=== PATIENT | female | born 1935 | race Caucasian/White ===

== ENCOUNTER 2017-07-08 11:13 | Emergency (ER) | payer MEDICARE ==
[~2017-07-08] VITALS: Ht 160 cm; Wt 66.0 kg
[~2017-07-08 11:13] MED LIST: ASPIRIN LOW81 M1 PO; B/P PILL; BAYER LOW81 MG PO; CARAFATE1 GM PO; CIPROFLOXACN500 MG PO; LIPITOR10 MG PO; LISINOPRIL5 MG PO; MULTIVITAMIN OR; NORVASC5 MG PO; OMEPRAZOLE20 MG PO; PLAVIX75 MG PO; PRILOSEC40 MG PO; RANITIDINE150 MG OR; SMZ-TMP DS1 TAB PO; TENORMIN25 M1 PO; TRAMADOL HYDROC50 MG PO; VITAMIN D2000 UNI2; ZANTAC150 M1 PO; [UNRECOGNIZED DRUG - REMARK]
[2017-07-08 15:47] VITALS: BP 138/90
== END 2017-07-08 15:47 | disposition home or self-care (01) ==
LOC: ED 11:13
DX: G89.29 Other chronic pain (principal); R10.9 Unspecified abdominal pain; M54.9 Dorsalgia, unspecified; I10 Essential (primary) hypertension; Z95.0 Presence of cardiac pacemaker